=== PATIENT | female | born 1985 | race Caucasian/White ===

== ENCOUNTER 2017-04-06 09:48 | Emergency (ER) | payer OTHER ==
[~2017-04-06] VITALS: Wt 56.8 kg
[~2017-04-06 09:48] MED LIST: CYCL5TAB PO; HYDR-3498 PO; IBUP-1542 PO
[2017-04-06] MEDS ORDERED: ONDANSETRON 4 MG INJ IV STA ×2 (10:22→11:28)
[2017-04-06] MEDS ORDERED: ACETAMINOPHEN 500 MG TAB PO STA (10:22)
--- NOTE | 2017-04-06 10:43 | ERD ---
ER Documentation Chief Complaint Date/Time DATE: 04/06/17 TIME: 10:05 Chief Complaint MID ABD PAIN W N/V HPI 32-year-old female who presents to the emergency department for epigastric pain that started yesterday afternoon. Stated that she vomited thrice with yellowish vomitus for the past 24 hours. Also reports difficulty walking due to her epigastric pain. Denies headache, loss of consciousness, dizziness, blurry vision, changes in vision, photophobia, facial pain, ear pain, throat pain, difficulty swallowing, neck pain, shoulder pain, chest pain, cough, hemoptysis, abdominal pain, back pain, loss of appetite, hematochezia, diarrhea, constipation, urinary symptoms, vaginal bleeding, vaginal discharge, , the possibility of being , bladder and bowel incontinences, extremity weakness, extremity tenderness, numbness or tingling sensation, difficulty walking, recent travel, recent exposure to illness, recent antibiotic use in the last 3 months, fever, chills. Allergy: No known drug allergies. PMH: Denies. Family medical history: Denies family history of cardiac before the age of 50, hypertension, stroke. with 3 miscarriages. LMP: February 18, 2017. Patient stated that she has always have an irregular menstrual period. Medications: Denies. Surgery: Denies. 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 Denies smoking, use of alcohol, use of illegal drugs. Not exposed to secondhand smoking. ROS All systems reviewed and are negative except as per history of present illness. Medications Home Meds Active Scripts Tamsulosin Hcl* (Flomax*) 0.4 Mg Cap.er.24h, 0.4 MG PO DAILY, #30 CAP Prov:PASILAWAQAR STOUT 04/06/17 Hydrocodone/Acetaminophen ([place] 10-325 Tablet) 1 Each Tablet, 1 TAB PO Q6H Y for PAIN, #20 TAB Prov:WAQAR MAYO 04/06/17 Ondansetron (Ondansetron Odt) 4 Mg Tab.rapdis, 4 MG PO Q6H Y for NAUSEA AND/OR VOMITING, #10 TAB Prov:PASILAWAQAR STOUT 04/06/17 Ibuprofen* (Motrin*) 600 Mg Tab, 600 MG PO Q8, #30 TAB Prov:PASILABANWAQAR 04/06/17 Cyclobenzaprine Hcl* (Cyclobenzaprine Hcl*) 5 Mg Tablet, 5 MG PO Q8H Y for MUSCLE SPASMS, #15 TAB Prov:KIKI BAIG DESCRIPTIVE [employer]OG LIBRARIAN 03/06/16 Hydrocodone Bit-Acetaminophen* ([place]*) 5-325 Mg Tab, 1 TAB PO Q6 Y for PAIN, # 20 TAB Prov:KIKI BAIG NP 03/06/16 Ibuprofen* (Motrin*) 600 Mg Tab, 600 MG PO Q6H Y for PAIN AND OR ELEVATED TEMP, #30 TAB Prov:KIKI BAIG NP 03/06/16 Reported Medications [none] Unknown Strength No Conflict Check 03/06/16 Allergies Allergies: Coded Allergies: No Known Allergy (Unverified , 03/06/16) PMhx/Soc Medical and Surgical Hx: pt denies Medical Hx, pt denies Surgical Hx History of Surgery: No Anesthesia Reaction: No Hx Neurological Disorder: No Hx Respiratory Disorders: No Hx Cardiac Disorders: No Hx Psychiatric Problems: No Hx Miscellaneous Medical Probl: No Hx Alcohol Use: Yes (Social) Hx Substance Use: No Hx Tobacco Use: Yes Smoking Status: Current every day smoker Physical Exam Vitals Vital Signs Date Time Temp Pulse Resp B/P Pulse Ox O2 Delivery O2 Flow Rate FiO2 04/06/17 12:48 98.3 81 18 104/67 97 Room Air 04/06/17 09:49 97.2 87 20 102/64 97 Physical Exam CONSTITUTIONAL: Well-appearing; well-nourished; in no apparent distress. HEAD: Normocephalic; atraumatic. EYES: Conjunctiva clear, sclera non-icteric, EOM intact. PERRL Ears: Hearing intact. EACs clear, TMs non-bulging, non-inflamed, translucent & mobile, ossicles normal appearance, No obstructions, no erythema, no discharges Nose: No obstructions. No polyps. No external lesions. Mucosa non-inflamed. No external lesions, septum and turbinates normal. No rhinorrhea. No discharges. Frontal sinus is non-tender to palpation. Maxillary sinus is non-tender to palpation. MOUTH: Moist mucous membranes, no lesion, no obstructions, no vesicles, no thrush, patent airway Throat: Uvula in midline. Right tonsil is +1 with no erythema, no exudate. Left tonsil is +1 with no erythema, no exudate. Tolerating secretions well. Good gag reflex. Patent airway. Neck: Supple, without lesions, bruits, or adenopathy. No mass. Thyroid non- enlarged and non-tender to palpation. CHEST: Symmetrical chest. Respirations even and not labored. No retractions noted. CARDIOVASCULAR: Normal S1, S2. RRR. No murmurs, gallops. RESPIRATORY: Normal chest excursion with respiration; breath sounds clear and equal bilaterally; no wheezes, rhonchi, or rales. Breathing even and unlabored. Speaking in clear, full, and complete sentences w/ ease. ABDOMEN: Normal bowel sounds normal. Soft, round, non-distended, non-guarding, no rebound, no organomegaly, no masses, no pulsating abdominal mass. Has right upper abdominal tenderness during her inspiration. There is no right lower abdominal tenderness. Negative on Rovsing's sign. Negative Marble sign. No hernia. No peritoneal signs. Stated that she has difficulty walking due to her pain. : Right-sided CVA tenderness. No left-sided CVA tenderness. BACK: Symmetrical shoulder. Spine is midline without deformity, tenderness. No evidence of trauma or deformity. PELVIS: Stable pelvis. No evidence of trauma or deformity. MUSCULOSKELETAL: Normal gait and station. No misalignment, asymmetry, crepitation, defects, tenderness, masses, effusions, decreased range of motion, instability, atrophy or abnormal strength or tone in the head, neck, spine, ribs , pelvis or extremities. No calf tenderness. NEUROVASCULAR: Distal pulses are present. Pedal pulse are present, equal, and normal. Capillary refills are < 2 seconds. NEUROLOGIC: Alert and oriented x4. Speaks full and clear sentences. Cranial Nerves II-XII normal. Sensation to pain, touch, and proprioception normal. Grossly unremarkable. No neurologic deficits. Romberg test is negative. PSYCHOLOGICAL: The patients mood and manner are appropriate. No hallucinations , delusions. Not SI. Not HI. Has the capacity to decide for self SKIN: Normal for age and ethnicity; warm; dry; good turgor; no apparent lesions or exudates. No rashes, hives, discoloration. Intact. Result Diagram: 04/06/17 1030 04/06/17 1030 Results 24 hrs Laboratory Tests Test 04/06/17 10:30 04/06/17 10:38 White Blood Count 7.010^3/ul Red Blood Count 4.2110^6/ul Hemoglobin 13.4g/dl Hematocrit 38.5% Mean Corpuscular Volume 91.4fl Mean Corpuscular Hemoglobin 31.8pg Mean Corpuscular Hemoglobin Concent 34.8g/dl Red Cell Distribution Width 11.3% Platelet Count 12215^3/UL Mean Platelet Volume 10.9fl Neutrophils % 78.1% Lymphocytes % 13.0% Monocytes % 8.3% Eosinophils % 0.4% Basophils % 0.1% Nucleated Red Blood Cells % 0.0/100WBC Neutrophils # 5.510^3/ul Lymphocytes # 0.910^3/ul Monocytes # 0.610^3/ul Eosinophils # 0.010^3/ul Basophils # 0.010^3/ul Nucleated Red Blood Cells # 0.010^3/ul Sodium Level 140mmol/L Potassium Level 3.7mmol/L Chloride Level 102mmol/L Carbon Dioxide Level 26mmol/L Anion Gap 16 Blood Urea Nitrogen 10mg/dl Creatinine 0.59mg/dl Glucose Level 109mg/dl Calcium Level 9.2mg/dl Total Bilirubin 1.6mg/dl Direct Bilirubin 0.00mg/dl Indirect Bilirubin 1.6mg/dl Aspartate Amino Transf (AST/SGOT) 27IU/L Alanine Aminotransferase (ALT/SGPT) 61IU/L Alkaline Phosphatase 66IU/L Total Protein 8.0g/dl Albumin 4.9g/dl Globulin 3.10g/dl Albumin/Globulin Ratio 1.58 Amylase Level 59U/L Lipase 31U/L Urine Color YELLOW Urine Clarity SLIGHTLY CLOUDY Urine pH 5.5 Urine Specific [place] 1.025 Urine Ketones 15 Urine Nitrite NEGATIVE Urine Bilirubin NEGATIVE Urine Urobilinogen 1.0 E.U./dL Urine Leukocyte Esterase NEGATIVE Urine Microscopic RBC 0-2/HPF Urine Microscopic WBC 0-2/HPF Urine Squamous Epithelial Cells MANY Urine Bacteria FEW Urine Hemoglobin 1+ Urine Glucose NEGATIVE% Urine Total Protein TRACE Current Medications Medications (Trade) Dose Ordered Sig/Jorge Route PRN Reason Start Time Stop Time Status Last Admin Dose Admin Ondansetron HCl (Zofran Inj) 4 mg ONCE STAT IV 04/06/17 10:22 04/06/17 10:24 DC 04/06/17 10:41 Acetaminophen (Tylenol Tab) 500 mg ONCE STAT PO 04/06/17 10:22 04/06/17 10:24 DC 04/06/17 10:41 Morphine Sulfate 2 mg 2 mg ONCE ONCE IV 04/06/17 11:30 04/06/17 11:31 DC 04/06/17 11:23 Sodium Chloride (NS) 1,000 ml @ 1,000 mls/hr Q1H ONCE IV 04/06/17 11:30 04/06/17 12:29 DC 04/06/17 11:22 Metoclopramide HCl (Reglan) 10 mg ONCE ONCE IV 04/06/17 11:30 04/06/17 11:30 DC Ondansetron HCl (Zofran Inj) 4 mg ONCE STAT IV 04/06/17 11:28 04/06/17 11:29 DC 04/06/17 11:30 Ketorolac Tromethamine (Toradol) 30 mg ONCE STAT IV 04/06/17 11:32 04/06/17 11:33 DC 04/06/17 11:36 Procedures/MDM Examination: Please see physical examination. Disease process, medical treatment was explained to the patient and family member. They verbalized understanding and agreed with the diagnostic tests, medical treatment, and follow-up care. Radiology: CT of the abdomen and pelvis without intravenous contrast. Impression: Small nonobstructing right renal calculi. No evidence of obstructive uropathy. Otherwise unremarkable noncontrast CT abdomen and pelvis without acute pathology identified. Blood works: Reviewed. POC urine : Negative. Urinalysis: Reviewed. Treatment: IV insertion. Zofran IV. Tylenol. Re-evaluation: Denies headache, dizziness, blurry vision, neck pain, shoulder pain, chest pain, back pain, numbness and tingling sensation. There is no right upper/right lower/epigastric/left lower abdominal tenderness on light and deep palpation prior to discharge. There is no CVA tenderness prior to discharge. Alert oriented 4. Speaks full and clear sentences. Respirations even and unlabored. Lung sounds are clear to auscultation. Ambulatory with steady gait. No neurovascular deficits. No neurological deficit. Consultation: None. Differential diagnosis: Appendicitis versus cholecystitis versus pancreatitis versus diverticulitis versus nephrolithiasis Medical decision makin-year-old female who presents to the emergency department for epigastric pain that started yesterday afternoon. Stated that she vomited thrice with yellowish vomitus for the past 24 hours. Also reports difficulty walking due to her epigastric pain. Patient's complaint, patient's history about her complaint, my physical findings, diagnostic test results, my reevaluation are consistent with my final diagnosis of nephrolithiasis, abdominal pain. Medications prescribed are the following: Zofran. Ibuprofen. [place]. Flomax. Patient was instructed on importance of hydration. She was also instructed to use urine strainer. Patient and her significant other verbalized understanding. Patient and family member are made aware of the side effects and adverse reactions of the medications prescribed. Instructed on when to seek emergent and medical attention in case allergic/anaphylactic reactions or severe side effects and or adverse reactions to medications. Patient and family member verbalized understanding. Patient instructed Instructed to follow-up with his PCP in 24-48 hours. Follow-up with urologist in the next 24-48 hours. Instructed to Call 911 for chest pain, shortness of breath. Advised to come back here in ED as soon as possible for severity of symptoms which includes but not limited to: any new symptoms; shortness of breath/difficulty of breathing; cardiovascular changes; severe gastrointestinal symptoms; signs and symptoms of bleeding and or infection; signs of compartment syndrome/neurovascular changes; neurological changes/deficits. Patient and family member verbalized understanding. Upon discharge, patient is alert and oriented x 4, speaks full and clear sentences, denies pain, has no neurological deficits, has no neurovascular deficits, difficulty of breathing. Breathing even and unlabored. Lung sounds are clear to auscultation. Not in distress. Appears comfortable. Ambulatory with steady gait. Appears satisfied with care provided here in ED. Departure Diagnosis: Primary Impression: Nephrolithiasis Additional Impression: Abdominal pain Condition: Stable Additional Instructions: Patient instructed Instructed to follow-up with his PCP in 24-48 hours. Follow-up with urologist in the next 24-48 hours. Instructed to Call 911 for chest pain, shortness of breath. Advised to come back here in ED as soon as possible for severity of symptoms which includes but not limited to: any new symptoms; shortness of breath/difficulty of breathing; cardiovascular changes; severe gastrointestinal symptoms; signs and symptoms of bleeding and or infection; signs of compartment syndrome/neurovascular changes; neurological changes/deficits. Patient and family member verbalized understanding. WAQAR MAYO Apr 06, 2017 10:43
[2017-04-06 10:53] LABS: ADD SCAN DIFF NO
[2017-04-06 10:58] LABS: BASOPHILS % 0.1 % (0.0-2.0); EOSINOPHILS % 0.4 % (0.0-7.0); HEMATOCRIT 38.5 % (37.0-47.0); HEMOGLOBIN 13.4 g/dl (12.0-16.0); LYMPHOCYTES # 0.9 10^3/ul (0.8-2.9); MEAN CORPUSCULAR HEMOGLOBIN 31.8 pg (29.0-33.0); MEAN CORPUSCULAR HGB CONC 34.8 g/dl (32.0-37.0); MEAN CORPUSCULAR VOLUME 91.4 fl (82.0-101.0); MEAN PLATELET VOLUME 10.9 fl (7.4-10.4); MONOCYTE # 0.6 10^3/ul (0.3-0.9); MONOCYTES % 8.3 % (0.0-11.0); NEUTROPHIL # 5.5 10^3/ul (1.6-7.5); NEUTROPHILS % 78.1 % (39.0-77.0); PLATELET COUNT 165 10^3/UL (140-415); RED BLOOD COUNT 4.21 10^6/ul (4.20-5.40); RED CELL DISTRIBUTION WIDTH 11.3 % (11.5-14.5)
[2017-04-06 11:06] LABS: ADD UMIC YES; URINE BILIRUBIN (Dip) NEGATIVE (NEGATIVE); URINE BLOOD (Dip) 1+ (NEGATIVE); URINE COLOR YELLOW (YELLOW); URINE GLUCOSE (Dip) NEGATIVE (NEGATIVE); URINE KETONES (Dip) 15 (NEGATIVE); URINE LEUKOCYTE ESTERASE (Dip) NEGATIVE (NEGATIVE); URINE NITRITE (Dip) NEGATIVE (NEGATIVE); URINE TOTAL PROTEIN (Dip) TRACE (NEGATIVE); URINE UROBILINOGEN (Dip) 1.0 E.U./dL (0.1-1.0)
--- NOTE | 2017-04-06 11:10 | RADRPT ---
PROCEDURE: CT Abdomen and Pelvis without intravenous contrast. CLINICAL INDICATION: Abdominal pain with peritoneal signs. . Nausea and vomiting TECHNIQUE: CT scan of the abdomen and pelvis without intravenous contrast was performed on a multi -slice CT scanner. Coronal and sagittal reformatted images were obtained from the axial source image s. Images were reviewed on a high-resolution PACS workstation. Total DLP = 382.2 mGy-cm. CTDIvol = 7.0 mGy. One or more of the following dose reduction techniques were used: Automated exposure control. Adjustment of the mA and/or kV according to patient size. Use of iterative reconstruction technique. COMPARISON: None. FINDINGS: CT abdomen and pelvis: The lung bases are clear. The heart size is normal in size. The liver is normal in size and densit y without focal mass or intrahepatic biliary dilatation. The spleen is normal in size and homogeneo us in density. The pancreas as visualized is normal. The gallbladder shows no evidence of stones or distension . The adrenal glands are normal. The kidneys are symmetric in size. There are nono bstructing right renal calculi measuring up to 3 mm.. No evidence of obstructive uropathy or uretera l stones. The stomach is partially collapsed, but is grossly unremarkable. The small bowels are unremarkable. The colon and rectum are normal. There is no evidence of appendicitis or diverticulitis. Uterus an d ovaries are normal for patient's age.. The bladder is normal. There is trace free fluid in the pel vis. There is no abdominal or pelvic adenopathy, free air or mass. The aorta is normal in caliber and course. The osseous structures are intact. No osteolytic or osteo blastic lesions are identified. The soft tissues are within normal limits. Lack of IV and oral con trast limits sensitivity of exam. IMPRESSION: 1. Small nonobstructing right renal calculi. No evidence of obstructive uropathy. 2. Otherwise unremarkable noncontrast CT abdomen and pelvis without acute pathology identified. RPTAT: QQ .Hernan Gonzalez MD, Date Time Electronically viewed and signed by .Hernan Gonzalez MD, on 04/06/2017 11:09 .Khadra/
[2017-04-06 11:12] LABS: ALBUMIN 4.9 g/dl (3.3-4.9); ALBUMIN/GLOBULIN RATIO 1.58; BILIRUBIN,INDIRECT 1.6 mg/dl (0-1.1); BILIRUBIN,TOTAL 1.6 mg/dl (0.2-1.3); CALCIUM 9.2 mg/dl (8.4-10.2); CREATININE 0.59 mg/dl (0.44-1.00); POTASSIUM 3.7 mmol/L (3.5-5.1)
[2017-04-06 11:21] LABS: BACTERIA,URINE FEW; SQUAMOUS EPITHELIAL CELL,UR MANY; URINE RBCS 0-2 /HPF (0)
[2017-04-06] MEDS ORDERED: METOCLOPRAMIDE 10 MG INJ IV ONE (11:30)
[2017-04-06] MEDS ORDERED: morphine 2 MG INJ IV ONE (11:30)
[2017-04-06] MEDS ORDERED: SOD CHLORIDE 0.9% 1,000 ML IV ONE (11:30)
[2017-04-06] MEDS ORDERED: KETOROLAC 30 MG INJ IV STA (11:32)
[2017-04-06] MEDS ORDERED: IBUP-1542 PO (11:39)
[2017-04-06] MEDS ORDERED: HYDR-902 PO (11:39)
[2017-04-06] MEDS ORDERED: ONDA4TAB14 PO (11:39)
[2017-04-06] MEDS ORDERED: TAMS-14 PO (11:40)
[2017-04-06 12:48] VITALS: BP 104/67; PULSE 81; RESP 18; TEMP 98.3
== END 2017-04-06 12:48 | disposition home or self-care (01) ==
LOC: FTE 09:48
DX: N20.0 Calculus of kidney (principal); F17.210 Nicotine dependence, cigarettes, uncomplicated
CPT/HCPCS: 36415; 74176; 80053; 81001; 82150; 83690; 85025; 87086; 96374; 96375; 96376; J2270; J2405; J7030; Z7502; Z7610

== ENCOUNTER 2017-10-02 09:45 | Emergency (ER) | payer OTHER ==
[~2017-10-02] VITALS: Wt 67.0 kg
[~2017-10-02 09:45] MED LIST changes: +HYDR-902 PO; +ONDA4TAB14 PO; +TAMS-14 PO
[2017-10-02] MEDS ORDERED: ONDANSETRON 4 MG INJ IV STA (10:02)
[2017-10-02] MEDS ORDERED: SOD CHLORIDE 0.9% 1,000 ML IV STA (10:02)
[2017-10-02] MEDS ORDERED: KETOROLAC 15 MG INJ IV STA (10:02)
--- NOTE | 2017-10-02 10:16 | ERD ---
ER Documentation Chief Complaint Chief Complaint RIGHT FLANK PAIN, NAUSEA, HX OF KIDNEY STONES HPI 32-year-old woman here for right sided suprapubic/pelvic pain associated with nausea and vomiting. She states the pain is intermittent and began suddenly. She denies previous similar symptoms. Patient denies dysuria or hematuria, no fevers or chills, no diarrhea, no complaints of chest pain or shortness of breath. ROS All systems reviewed and are negative except as per history of present illness. Medications Home Meds Active Scripts Cephalexin* (Keflex*) 500 Mg Capsule, 500 MG PO TID for 5 Days, CAP Prov:IGOR SANCHEZ MD 10/02/17 Oxycodone HCl/Acetaminophen (Percocet 5-325 mg Tablet) 1 Each Tablet, 1 EACH PO TID for PAIN, #9 TAB Prov:IGOR SANCHEZ MD 10/02/17 Ibuprofen* (Ibuprofen*) 600 Mg Tablet, 600 MG PO Q8 for PAIN AND/OR INFLAMMATION , #30 TAB Prov:IGOR SANCHEZ MD 10/02/17 Discontinued Reported Medications [none] Unknown Strength No Conflict Check 03/06/16 Discontinued Scripts Tamsulosin Hcl* (Flomax*) 0.4 Mg Cap.er.24h, 0.4 MG PO DAILY, #30 CAP Prov:WAQAR MAYO 04/06/17 Hydrocodone/Acetaminophen ([place] 10-325 Tablet) 1 Each Tablet, 1 TAB PO Q6H Y for PAIN, #20 TAB Prov:WAQAR MAYO 04/06/17 Ondansetron (Ondansetron Odt) 4 Mg Tab.rapdis, 4 MG PO Q6H Y for NAUSEA AND/OR VOMITING, #10 TAB Prov:WAQAR MAYO 04/06/17 Ibuprofen* (Motrin*) 600 Mg Tab, 600 MG PO Q8, #30 TAB Prov:WAQAR MAYO 04/06/17 Cyclobenzaprine Hcl* (Cyclobenzaprine Hcl*) 5 Mg Tablet, 5 MG PO Q8H Y for MUSCLE SPASMS, #15 TAB Prov:KIKI BAIG NP 03/06/16 Hydrocodone Bit-Acetaminophen* ([place]*) 5-325 Mg Tab, 1 TAB PO Q6 Y for PAIN, # 20 TAB Prov:KIKI BAIG NP 03/06/16 Ibuprofen* (Motrin*) 600 Mg Tab, 600 MG PO Q6H Y for PAIN AND OR ELEVATED TEMP, #30 TAB Prov:KIKI BAIG NP 03/06/16 Allergies Allergies: Coded Allergies: No Known Allergy (Unverified , 03/06/16) PMhx/Soc None History of Surgery: No Anesthesia Reaction: No Hx Neurological Disorder: No Hx Respiratory Disorders: No Hx Cardiac Disorders: No Hx Psychiatric Problems: No Hx Miscellaneous Medical Probl: No Hx Alcohol Use: Yes (Social) Hx Substance Use: No Hx Tobacco Use: Yes Smoking Status: Current every day smoker FmHx Family History: No diabetes Physical Exam Vitals Vital Signs Date Time Temp Pulse Resp B/P Pulse Ox O2 Delivery O2 Flow Rate FiO2 10/02/17 13:52 98.5 60 18 108/58 98 Room Air 10/02/17 09:47 97.7 72 17 137/66 99 Physical Exam GENERAL: Well-developed, well-nourished, well-hydrated, in no apparent distress , looks nontoxic in appearance, afebrile HEENT: Moist mucous membranes, pink conjunctiva, no cervical spine tenderness or step-off deformities, no goiter, no jaundice or icterus, extraocular movements intact without pain. No submandibular induration, and no pharyngeal erythema NEURO: Alert and oriented 3, cranial nerves II through XII intact bilaterally, pupils equal round reactive to light, no focal deficits or facial asymmetry, sensation intact distally Strength 5/5 in upper and lower extremities bilaterally CARDIAC: Regular rate and rhythm, no murmurs rubs or gallops LUNGS: Clear bilaterally no wheezing crackles or stridor ABDOMEN: Soft nontender, no guarding, no rigidity, no rebound, no psoas sign no obturator sign. Normoactive bowel sounds SKIN: Warm and dry to touch, no abrasions, contusions, or hematomas, no lacerations, no ecchymosis, no target lesions, and without ulcers EXTREMITIES: No clubbing cyanosis or edema, calves are bilaterally symmetrical, no Homans sign, no popliteal cord sign. Distal pulses equal and bilateral PSYCH: Normal affect without agitation or irritability Result Diagram: 10/02/17 1005 10/02/17 1005 Results 24 hrs Laboratory Tests Test 10/02/17 10:05 White Blood Count 7.810^3/ul Red Blood Count 3.9110^6/ul Hemoglobin 12.6g/dl Hematocrit 37.2% Mean Corpuscular Volume 95.1fl Mean Corpuscular Hemoglobin 32.2pg Mean Corpuscular Hemoglobin Concent 33.9g/dl Red Cell Distribution Width 12.3% Platelet Count 00441^3/UL Mean Platelet Volume 11.3fl Neutrophils % 71.0% Lymphocytes % 21.8% Monocytes % 5.5% Eosinophils % 1.0% Basophils % 0.4% Nucleated Red Blood Cells % 0.0/100WBC Neutrophils # 5.510^3/ul Lymphocytes # 1.710^3/ul Monocytes # 0.410^3/ul Eosinophils # 0.110^3/ul Basophils # 0.010^3/ul Nucleated Red Blood Cells # 0.010^3/ul Prothrombin Time 12.7Sec Prothrombin Time Ratio 1.0 INR International Normalized Ratio 0.95 Urine Color YELLOW Urine Clarity CLEAR Urine pH 5.0 Urine Specific [place] 1.029 Urine Ketones 2+mg/dL Urine Nitrite NEGATIVEmg/dL Urine Bilirubin NEGATIVEmg/dL Urine Urobilinogen NEGATIVEmg/dL Urine Leukocyte Esterase TRACELeu/ul Urine Microscopic RBC 124/HPF Urine Microscopic WBC 3/HPF Urine Squamous Epithelial Cells FEW/HPF Urine Mucus FEW/HPF Urine Hemoglobin 3+mg/dL Urine Glucose NEGATIVEmg/dL Urine Total Protein 1+mg/dl Sodium Level 141mmol/L Potassium Level 3.6mmol/L Chloride Level 103mmol/L Carbon Dioxide Level 25mmol/L Anion Gap 17 Blood Urea Nitrogen 17mg/dl Creatinine 0.94mg/dl Glucose Level 132mg/dl Calcium Level 9.6mg/dl Total Bilirubin 1.1mg/dl Direct Bilirubin 0.00mg/dl Indirect Bilirubin 1.1mg/dl Aspartate Amino Transf (AST/SGOT) 47IU/L Alanine Aminotransferase (ALT/SGPT) 138IU/L Alkaline Phosphatase 67IU/L Total Protein 8.1g/dl Albumin 4.7g/dl Globulin 3.40g/dl Albumin/Globulin Ratio 1.38 Lipase 67U/L Current Medications Medications (Trade) Dose Ordered Sig/Jorge Route PRN Reason Start Time Stop Time Status Last Admin Dose Admin Sodium Chloride (NS) 1,000 ml @ 1,000 mls/hr Q1H STAT IV 10/02/17 10:02 10/02/17 11:01 DC 10/02/17 10:10 Ondansetron HCl (Zofran Inj) 4 mg ONCE STAT IV 10/02/17 10:02 10/02/17 10:03 DC 10/02/17 10:10 Ketorolac Tromethamine (Toradol) 15 mg ONCE STAT IV 10/02/17 10:02 10/02/17 10:03 DC 10/02/17 10:10 Procedures/MDM IV line was established patient was placed on secured entrance monitor rhythm strip revealed a sinus rhythm at about 80 bpm with upright P and T waves. Patient was afebrile I administered 1 L normal saline intravenously, Zofran 4 mg IV and Toradol 15 mg IV with good effect. test was negative, CBC and electrolytes were normal, liver function tests were normal, urine analysis was equivocal and patient admitted to having recent increased urinary frequency. I will be treating him as an outpatient for acute UTI. Nonobstetric pelvic and abdominal ultrasounds were performed there was no ovarian torsion noted. Please refer to radiologist dictation for full report. Differential diagnoses considered, included but not limited to acute coronary syndrome, pulmonary embolism, aortic dissection, abdominal aortic aneurysm, sepsis, stroke, meningitis, encephalitis, pneumonia, appendicitis, cholecystitis , bowel obstruction, pyelonephritis, nephrolithiasis, cystitis, as well as metabolic, hematologic, and electrolyte abnormalities. As well as abscess, cellulitis, fractures, and dislocations. Patient feels much better at this time, and vital signs are normal, symptoms have improved. I did give strict instructions to return to the ED if symptoms continue or worsen, patient will otherwise follow-up with primary care physician. Patient understood instructions and agreed to plan. Disclaimer: Inadvertent spelling and grammatical errors are likely due to EHR/ dictation software use and do not reflect on the overall quality of patient care. Also, please note that the electronic time recorded on this note does not necessarily reflect the actual time of the patient encounter. Departure Diagnosis: Primary Impression: Pelvic pain Additional Impression: UTI (urinary tract infection) Urinary tract infection type: acute cystitis Hematuria presence: without hematuria Qualified Code: N30.00 - Acute cystitis without hematuria Condition: IGOR Yost MD Oct 02, 2017 10:16
[2017-10-02 10:37] LABS: BASOPHILS % 0.4 % (0.0-2.0); EOSINOPHILS # 0.1 10^3/ul (0.0-0.5); HEMATOCRIT 37.2 % (37.0-47.0); HEMOGLOBIN 12.6 g/dl (12.0-16.0); LYMPHOCYTES # 1.7 10^3/ul (0.8-2.9); LYMPHOCYTES % 21.8 % (15.0-51.0); MEAN CORPUSCULAR HEMOGLOBIN 32.2 pg (29.0-33.0); MEAN CORPUSCULAR HGB CONC 33.9 g/dl (32.0-37.0); MEAN CORPUSCULAR VOLUME 95.1 fl (82.0-101.0); MEAN PLATELET VOLUME 11.3 fl (7.4-10.4); MONOCYTE # 0.4 10^3/ul (0.3-0.9); MONOCYTES % 5.5 % (0.0-11.0); NEUTROPHIL # 5.5 10^3/ul (1.6-7.5); PLATELET COUNT 222 10^3/UL (140-415); RED BLOOD COUNT 3.91 10^6/ul (4.20-5.40); RED CELL DISTRIBUTION WIDTH 12.3 % (11.5-14.5); WHITE BLOOD COUNT 7.8 10^3/ul (4.8-10.8)
[2017-10-02 11:02] LABS: INR 0.95; PROTIME 12.7 Sec (12.2-14.2)
[2017-10-02 11:06] LABS: ALBUMIN 4.7 g/dl (3.3-4.9); ALBUMIN/GLOBULIN RATIO 1.38; BILIRUBIN,INDIRECT 1.1 mg/dl (0-1.1); BILIRUBIN,TOTAL 1.1 mg/dl (0.2-1.3); CALCIUM 9.6 mg/dl (8.4-10.2); CREATININE 0.94 mg/dl (0.44-1.00); POTASSIUM 3.6 mmol/L (3.5-5.1); TOTAL PROTEIN 8.1 g/dl (6.1-8.1)
[2017-10-02 11:21] LABS: UR BILIRUBIN (Dip) NEGATIVE (NEGATIVE); UR BLOOD (Dip) 3+ mg/dL (NEGATIVE); UR CLARITY CLEAR (CLEAR); UR COLOR YELLOW (YELLOW); UR GLUCOSE (Dip) NEGATIVE (NEGATIVE); UR KETONES (Dip) 2+ mg/dL (NEGATIVE); UR LEUKOCYTE ESTERASE (Dip) TRACE Leu/ul (NEGATIVE); UR NITRITE (Dip) NEGATIVE (NEGATIVE); UR SPECIFIC GRAVITY (Dip) 1.029 (1.003-1.030); UR TOTAL PROTEIN (Dip) 1+ mg/dl (NEGATIVE); UR UROBILINOGEN (Dip) NEGATIVE (NEGATIVE)
[2017-10-02 11:22] LABS: ADD UMIC YES; UR ASCORBIC ACID 40 mg/dL (NEGATIVE); UR MUCUS FEW /HPF (NONE SEEN); UR RBC 124 /HPF (0-5); UR SQUAMOUS EPITHELIAL CELL FEW /HPF (FEW)
--- NOTE | 2017-10-02 11:39 | RADRPT ---
PROCEDURE: US Pelvis. CLINICAL INDICATION: pelvic pain TECHNIQUE: Multiple sonographic images of the pelvis were obtained utilizing a transabdominal and endovaginal technique. The images were reviewed on a PACS workstation. COMPARISON: None. FINDINGS: The uterus is normal in size with a normal appearance of the myometrium. The uterus measures 7.1 x 3.8 x 5.4 cm. The endometrial stripe is homogeneous in appearance and has the thickness of 2.3 mm. The ovaries are normal in size and echogenicity. Normal arterial and venous Doppler flow is identifi ed in both ovaries. The right ovary measures 3.8 x 2.4 x 2.8 cm. The left ovary measures 3.4 x 2.4 x 2.5 cm. No free fluid is present within the pelvis. RPTAT: AA IMPRESSION: Unremarkable pelvic ultrasound. .Napoleon Cunningham MD, Date Time Electronically viewed and signed by .Napoleon Cunningham MD, on 10/02/2017 11:38 .S/
[2017-10-02] MEDS ORDERED: OXYC-279 PO (13:06)
[2017-10-02] MEDS ORDERED: CEPH-443 PO (13:06)
[2017-10-02] MEDS ORDERED: IBUP-1542 PO (13:06)
[2017-10-02 13:52] VITALS: BP 108/58; PULSE 60; RESP 18; TEMP 98.5
== END 2017-10-02 14:06 | disposition home or self-care (01) ==
LOC: E/R 09:45
DX: N30.00 Acute cystitis without hematuria (principal); F17.210 Nicotine dependence, cigarettes, uncomplicated
CPT/HCPCS: 36415; 76830; 76856; 80053; 81001; 83690; 85025; 85610; 96374; 96375; J1885; J2405; J7030; Z7502

== ENCOUNTER 2018-05-08 20:52 | Emergency (ER) | END 2018-05-08 23:35 | disposition home or self-care (01) ==

== ENCOUNTER 2018-09-18 13:53 | Emergency (ER) | END 2018-09-18 14:57 | disposition home or self-care (01) ==